=== PATIENT | female | born 1960 | race Two or more races ===

== ENCOUNTER → 2018-03-09 | Day surgery (SDC) | payer MEDICAID ==
[~2018-03-09] MED LIST: FENTANYL PF 100MCG/2ML VIAL IV ONE; KETOROLAC 30 MG/ML VIAL IVP ONE; LIDOCAINE 2% MDV (20MG/ML) 20ML VIAL IV ONE; PROPOFOL 10 MG/ML VIAL IV ONE
--- NOTE | 2018-03-10 08:50 | Operative Note ---
DATE OF SURGERY: 03/09/2018 OPERATION: COLONOSCOPY to the cecum with cold biopsy forceps polypectomy x3. INDICATION: Colorectal cancer screening. The patient states that she did have a colonoscopy in the past by another physician and it was thought that everything was okay. She denies history of polyps that she "knows of." She denies any current bleeding. She does have symptoms she feels are compatible with irritable bowel syndrome with alternating diarrhea and constipation. ANESTHESIA: Intravenous sedation was administered by the department of anesthesiology and included Diprivan titrated to effect. PROCEDURE: Following informed consent from this alert individual including a discussion of the risks and benefits of the procedure and an opportunity for the patient to ask questions, the patient was in the left lateral decubitus position. A digital rectal examination was performed. No abnormalities were noted. Following this, the Olympus [id number] video colonoscope was inserted into the rectum without resistance. The rectal mucosa had a normal appearance with normal folds and distensibility. The colonoscope was advanced up through the colon to the level of the cecum without much difficulty. Throughout the bowel the mucosa appeared normal, the folds were normal, and the bowel was fairly well distensible. The cecum was well defined by noting the appendiceal orifice and ileocecal valve. Colon preparation was good. Retroflexion in the cecum was endoscopically unremarkable. From the base of the cecum, the colonoscope was then withdrawn. There was a diminutive polyp noted in the sigmoid colon and 2 diminutive polyps noted in the rectum, each removed with application of biopsy forceps. No other changes were appreciated upon slow withdrawal. Retroflexion in the rectum was endoscopically unremarkable. The instrument was straightened and withdrawn. The patient tolerated the procedure well and was returned to the recovery area in stable condition. IMPRESSION: Two diminutive rectal polyps and one diminutive sigmoid polyp each removed with cold biopsy forceps. No other changes were appreciated. RECOMMENDATIONS: Further recommendations will be forthcoming pending results of pathology obtained today. Followup will also be with Dr. Castro. As always, thank you for allowing me to participate in the care of your patient. CC: MD LUIS Tamez
== END | disposition home or self-care (01) ==
LOC: HOP 10:16
PROVIDERS: ATTEND Internal Medicine Gastroenterology
DX: Z12.11 Encounter for screening for malignant neoplasm of colon (principal); D12.5 Benign neoplasm of sigmoid colon; K62.1 Rectal polyp; I10 Essential (primary) hypertension
CPT/HCPCS: 45380; 00811; J1885; J3010